=== PATIENT | male | born 1940 | race Caucasian/White ===

== ENCOUNTER 2020-04-04 15:37 | Emergency (ER) | payer OTHER ==
--- OUTSIDE RECORDS SUMMARY | 2020-04-04 15:40 | XMS REPORT | Continuity of Care Document ---
:1940 Author Organization [employer] Care Team Providers Name Role Phone [employer] Unavailable Un available Problems No Data Provided for This Section Medications No Data Provided for This Section Allergies, Adverse Reactions, Alerts No Known Medication Allergies Immunizations No Data Provided for This Section Results No Data Provided for This Section Pathology Reports No Data Provided for This Section Diagnostic Reports No Data Provided for This Section Consultation Notes No Data Provided for This Section Discharge Summaries No Data Provided for This Section History and Physicals No Data Provided for This Section Vital Signs No Data Provided for This Section Encounters Location Location Encounter Encounter Reason Attending ADM [place] Stat Source Details Type Number For Provider Date Date Visit Outpatient [id number] SO 05/20 Active [facility] Outside [id number] 07/01 07/03 Mis [facility] Medical /2018 [facility] [place] Records Procedures No Data Provided for This Section Assessment and Plan No Data Provided for This Section Plan of Care No Data Provided for This Section Social History Social History Date Source No data available for this 07/03/2018 [facility] [place] section Family History No Data Provided for This Section Advance Directives No Data Provided for This Section Functional Status No Data Provided for This Section
[2020-04-04 18:39] LABS: Absolute Lymphocytes (CBC) 0.6 K/uL (0.7-4.9); Basophils % 0.2 % (0-1.3); Hematocrit 42.6 % (39.6-49.0); Lymphocytes % 17.2 % (15.3-44.8); MPV 7.9 fL (7.6-11.3); RBC Red Blood Cell Count 4.85 M/uL (4.33-5.43)
[2020-04-04 18:40] LABS: Protime INR 1.03
[2020-04-04] MEDS ORDERED: NA CHLORIDE 0.9% 1,000 ML ONE (18:46)
[2020-04-04] MEDS ORDERED: CEFTRIAXONE/SWI 1gm 1 GM/10 ML SYR ONE (18:46)
[2020-04-04 18:53] LABS: ALT/SGPT 23 U/L (12-78); AST/SGOT 29 U/L (15-37); Albumin 3.7 g/dL (3.4-5.0); Alkaline Phosphatase 89 U/L (45-117); BUN Blood Urea Nitrogen 13 mg/dL (7-18); Bicarbonate 28 mmol/L (21-32); Bilirubin Direct 0.1 mg/dL (0-0.2); Bilirubin Total 0.6 mg/dL (0.2-1.0); Glucose Level 102 mg/dL (74-106); Lipase 146 U/L (73-393); NT PRO-BNP 111 pg/mL (<450); Potassium 4.1 mmol/L (3.5-5.1); Protein, Total 7.8 g/dL (6.4-8.2); Sodium Level 136 mmol/L (136-145); Troponin (Emerg Dept Use Only) < 0.02 ng/mL (0.0-0.045)
--- NOTE | 2020-04-04 19:16 | RAD REPORT ---
EXAM DESCRIPTION: Samy Single View04/04/2020 6:46 pm CLINICAL HISTORY: cough COMPARISON: none FINDINGS: The lungs appear clear of acute infiltrate. The heart is normal size IMPRESSION: No acute abnormalities displayed
[2020-04-04 19:51] LABS: SARS-COV-2 RT PCR POSITIVE (NEGATIVE)
[2020-04-04 19:54] LABS: Urine Blood 2+ (NEG); Urine Glucose NEGATIVE (NEG); Urine Protein 2+ (NEG)
--- NOTE | 2020-04-04 20:03 | EDPHYS ---
Physician Documentation [facility] Name: Rudi Nina Age: 79 yrs Sex: Male : 1940 Arrival Date: 04/04/2020 Time: 15:39 Bed External Waiting [facility] MD: Yung Marie B ED Physician Zach Neff HPI: 04/04 18:01 This 79 yrs old Male presents to ER via Ambulatory with complaints of General jb Weakness, Pain With Urination. 18:01 weak, cough , weakness, decreased po. The patient or guardian reports cough, described jb as mild. Onset: The symptoms/episode began/occurred 3 day(s) ago. Severity of symptoms: At their worst the symptoms were mild, in the emergency department the symptoms are unchanged. Modifying factors: The symptoms are alleviated by nothing, the symptoms are aggravated by nothing. Associated signs and symptoms: Pertinent positives: rhinorrhea. Severity of symptoms: At their worst the symptoms were mild moderate in the emergency department the symptoms are unchanged. The patient has not experienced similar symptoms in the past. Historical: - Allergies: 16:22 No Known Allergies; ss - Home Meds: 16:22 None [Active]; ss - PMHx: 16:22 None; ss - PSHx: 16:22 facial recon.; ss - Immunization history:: Adult Immunizations up to date. - Social history:: Smoking status: Patient denies any tobacco usage or history of. - Family history:: not pertinent. ROS: 18:01 Constitutional: Negative for fever, chills, and weight loss, Eyes: Negative for injury, jb pain, redness, and discharge, ENT: Negative for injury, pain, and discharge, Neck: Negative for injury, pain, and swelling, Cardiovascular: Negative for chest pain, palpitations, and edema, Abdomen/GI: Negative for abdominal pain, nausea, vomiting, diarrhea, and constipation, Back: Negative for injury and pain, : Negative for injury, bleeding, discharge, and swelling, MS/Extremity: Negative for injury and deformity, Skin: Negative for injury, rash, and discoloration, Neuro: Negative for headache, weakness, numbness, tingling, and seizure, Psych: Negative for depression, anxiety, suicide ideation, homicidal ideation, and hallucinations, Allergy/Immunology: Negative for hives, rash, and allergies, Endocrine: Negative for neck swelling, polydipsia, polyuria, polyphagia, and marked weight changes, Hematologic/Lymphatic: Negative for swollen nodes, abnormal bleeding, and unusual bruising. 18:01 Respiratory: Positive for cough, "sounds productive". Exam: 18:01 Constitutional: This is a well developed, well nourished patient who is awake, alert, jb and in no acute distress. Head/Face: Normocephalic, atraumatic. Eyes: Pupils equal round and reactive to light, extra-ocular motions intact. Lids and lashes normal. Conjunctiva and sclera are non-icteric and not injected. Cornea within normal limits. Periorbital areas with no swelling, redness, or edema. ENT: Nares patent. No nasal discharge, no septal abnormalities noted. Tympanic membranes are normal and external auditory canals are clear. Oropharynx with no redness, swelling, or masses, exudates, or evidence of obstruction, uvula midline. Mucous membranes moist. Neck: Trachea midline, no thyromegaly or masses palpated, and no cervical lymphadenopathy. Supple, full range of motion without nuchal rigidity, or vertebral point tenderness. No Meningismus. Chest/axilla: Normal chest wall appearance and motion. Nontender with no deformity. No lesions are appreciated. Cardiovascular: Regular rate and rhythm with a normal S1 and S2. No gallops, murmurs, or rubs. Normal PMI, no JVD. No pulse deficits. Respiratory: Lungs have equal breath sounds bilaterally, clear to auscultation and percussion. No rales, rhonchi or wheezes noted. No increased work of breathing, no retractions or nasal flaring. Abdomen/GI: Soft, non-tender, with normal bowel sounds. No distension or tympany. No guarding or rebound. No evidence of tenderness throughout. Back: No spinal tenderness. No costovertebral tenderness. Full range of motion. Male : Normal genitalia with no discharge or lesions. Skin: Warm, dry with normal turgor. Normal color with no rashes, no lesions, and no evidence of cellulitis. MS/ Extremity: Pulses equal, no cyanosis. Neurovascular intact. Full, normal range of motion. Neuro: Awake and alert, GCS 15, oriented to person, place, time, and situation. Cranial nerves II-XII grossly intact. Motor strength 5/5 in all extremities. Sensory grossly intact. Cerebellar exam normal. Normal gait. Psych: Awake, alert, with orientation to person, place and time. Behavior, mood, and affect are within normal limits. 18:01 Musculoskeletal/extremity: DVT Exam: No signs of deep vein thrombosis. no pain, no swelling, no tenderness, negative Homans' sign noted on exam, no appreciated bluish discoloration, no erythema, no increased warmth. 19:25 ECG was reviewed by the Attending Physician. [facility] Vital Signs: 16:18 BP 167 / 92; Pulse 103; Resp 16; Temp 98.4(TE); Pulse Ox 99% on R/A; Weight 80.74 kg; ss Height 5 ft. 7 in. (170.18 cm); Pain 0/10; 19:35 BP 171 / 88; Pulse 72; Resp 17; ll1 21:36 BP 168 / 88; Pulse 74; Resp 18; Pulse Ox 99% on R/A; ll1 16:18 Body Mass Index 27.88 (80.74 kg, 170.18 cm) MDM: 17:43 Patient medically screened. [facility] 18:05 Differential Diagnosis sepsis, flu, Upper Respiratory Infection Pharyngitis Pneumonia. [facility] Data reviewed: vital signs, nurses notes, lab test result(s), EKG, radiologic studies, plain films. Data interpreted: facility maintenance helper: rate is 103 beats/min, rhythm is regular, Pulse oximetry: on room air is 99 %. Test interpretation: by ED physician or midlevel provider: ECG, plain radiologic studies. Counseling: I had a detailed discussion with the patient and/or guardian regarding: the historical points, exam findings, and any diagnostic results supporting the discharge/admit diagnosis, lab results, radiology results. 04/04 18:00 Order name: Basic Metabolic Panel [facility] 04/04 18:00 Order name: CBC with Diff; Complete Time: 19:00 [facility] 04/04 18:00 Order name: LFT's [facility] 04/04 18:00 Order name: Magnesium [facility] 04/04 18:00 Order name: NT PRO-BNP [facility] 04/04 18:00 Order name: PT-INR; Complete Time: 18:53 [facility] 04/04 18:00 Order name: Troponin (emerg Dept Use Only) [facility] 04/04 18:00 Order name: Lipase [facility] 04/04 18:00 Order name: Urine Culture [facility] 04/04 18:01 Order name: Lactate; Complete Time: 19:00 [facility] 04/04 18:48 Order name: Urine Dipstick--Ancillary (enter results); Complete Time: 19:59 04/04 19:51 Order name: COVID-19/FLU A+B; Complete Time: 19:59 [facility] 04/04 18:00 Order name: XRAY Chest (1 view); Complete Time: 19:26 [facility] 04/04 18:00 Order name: EKG; Complete Time: 18:01 [facility] 04/04 18:00 Order name: Cardiac monitoring; Complete Time: 19:35 [facility] 04/04 18:00 Order name: EKG - Nurse/Tech; Complete Time: 19:35 [facility] 04/04 18:00 Order name: IV Saline Lock; Complete Time: 18:07 [facility] 04/04 20:36 Order name: CT Chest For PE Angio [facility] 04/04 21:02 Order name: PSA Screen [facility] 04/04 18:00 Order name: Labs collected and sent; Complete Time: 18:07 [facility] 04/04 18:00 Order name: O2 Per Protocol; Complete Time: 18:06 [facility] 04/04 18:00 Order name: O2 Sat Monitoring; Complete Time: 18:06 [facility] 04/04 18:00 Order name: Urine Dipstick-Ancillary (obtain specimen); Complete Time: 18:43 jb EC:25 Rate is 72 beats/min. Rhythm is regular. QRS [place] is Normal. [place] interval is normal. QRS jb interval is normal. QT interval is normal. No Q waves. T waves are Normal. No ST changes noted. Clinical impression: NSR w/ Non-specific ST/T Changes and No evidence of ischemia. Interpreted by me. Reviewed by me. Administered Medications: 18:43 Drug: NS 0.9% 1000 ml Route: IV; Rate: 1 bolus; Site: right antecubital; ll1 20:26 Follow up: Response: No adverse reaction; RASS: Alert and Calm (0); IV Status: ll1 Completed infusion; IV Intake: 1000ml 18:54 Drug: Rocephin 1 grams Route: IV; Rate: per protocol; Site: right antecubital; ll1 20:27 Follow up: Response: No adverse reaction; RASS: Alert and Calm (0); IV Status: ll1 Completed infusion; IV Intake: 10ml 20:25 Drug: Aspirin Chewable Tablet 324 mg Route: PO; ll1 20:27 Follow up: Response: No adverse reaction; RASS: Alert and Calm (0) ll1 20:25 Drug: Pepcid 20 mg Route: IVP; Site: right antecubital; 1 21:02 Follow up: Response: No adverse reaction; RASS: Alert and Calm (0) [facility] 20:25 Drug: Decadron - Dexamethasone 10 mg Route: IVP; Site: right antecubital; 1 21:02 Follow up: Response: No adverse reaction; RASS: Alert and Calm (0) [facility] 20:25 Drug: Zithromax 500 mg Route: IVPB; Infused Over: 1 hrs; Site: right antecubital; 1 21:01 Follow up: Response: No adverse reaction; RASS: Alert and Calm (0); IV Status: ll1 Completed infusion; IV Intake: 250ml 20:26 Not Given (not available): Ivermectin 12 mg PO once [facility] 21:21 Drug: Mucomyst - Acetylcysteine 600 mg Route: PO; 1 21:39 Follow up: Response: No adverse reaction [facility] Disposition: 04/04/20 20:02 Discharged to Home. Impression: Weakness, Malaise and fatigue, SARS-associated coronavirus as the cause of diseases classified elsewhere - covid 19. - Condition is Stable. - Discharge Instructions: Weakness, Fatigue, Weakness, [id number], Aspirin and Your Heart, COVID-19. - Prescriptions for dexamethasone 2 mg Oral tablet - take 1 tablet by ORAL route 3 times per day; 15 tablet. Pepcid 20 mg Oral Tablet - take 1 tablet by ORAL route every 12 hours for 15 days; 30 tablet. ivermectin 3 mg Oral tablet - take 4 tablet by ORAL route once daily x1 dose on days 1 and day 3.; 8 tablet. Zithromax 500 mg Oral Tablet - take 1 tablet by ORAL route once daily for 4 days; 4 tablet. Albuterol Sulfate 90 mcg/actuation Inhalation - inhale 2 puff by INHALATION route every 4-6 hours; 1 Inhaler. - Medication Reconciliation Form, Thank You Letter, Antibiotic Education, Prescription Opioid Use form. - Follow up: Yung Marie MD; When: 2 - 3 days; Reason: Recheck today's complaints, Continuance of care, Re-evaluation by your physician. Follow up: Otis Canales MD; When: 2 - 3 days; Reason: Recheck today's complaints, Re-evaluation by your physician. - Problem is new. - Symptoms have improved. Signatures: Dispatcher [employer] EDIN Andrea Roberts RN RN sg Anderson, Corey, MD MD cha Smirch, Shelby, RN RN ss Destinee Nash RN RN ll1 Corrections: (The following items were deleted from the chart) 19:01 18:01 Influenza Screen (A \\T\\ B)+BA.LAB.BRZ ordered. EDIN EDMS 21:02 20:40 PSA SCREEN+C.LAB.BRZ ordered. EDIN EDMS 22:42 20:02 04/04/2020 20:02 Discharged to Home. Impression: Weakness; Malaise and fatigue; sg SARS-associated coronavirus as the cause of diseases classified elsewhere - covid 19. Condition is Stable. Forms are Medication Reconciliation Form, Thank You Letter, Antibiotic Education, Prescription Opioid Use. Follow up: Yung Marie; When: 2 - 3 days; Reason: Recheck today's complaints, Continuance of care, Re-evaluation by your physician. Follow up: Otis Canales; When: 2 - 3 days; Reason: Recheck today's complaints, Re-evaluation by your physician. Problem is new. Symptoms have improved. jb
--- NOTE | 2020-04-04 20:03 | ER ---
Nurse's Notes [facility] Name: Rudi Nina Age: 79 yrs Sex: Male : 1940 Arrival Date: 04/04/2020 Time: 15:39 Bed External Waiting Private MD: Yung Marie B Diagnosis: Weakness;Malaise and fatigue;SARS-associated coronavirus as the cause of diseases classified elsewhere-covid 19 Presentation: 04/04 16:18 Chief complaint: Patient states: "I can hardly stand up. I'm weak." Pt reports symptoms ss began 5-6 days ago. Pt also c/o urinary urgency and mild burning with urination. Coronavirus screen: fatigue, Client presents with at least one sign or symptom that may indicate coronavirus-19. Standard/surgical mask placed on the client. Ebola Screen: Patient denies exposure to infectious person. Patient denies travel to an Ebola-affected area in the 21 days before illness onset. Initial Sepsis Screen: Does the patient meet any 2 criteria? No. Patient's initial sepsis screen is negative. Does the patient have a suspected source of infection? No. Patient's initial sepsis screen is negative. Risk Assessment: Do you want to hurt yourself or someone else? Patient reports no desire to harm self or others. Onset of symptoms was March 29, 2020. 16:18 Method Of Arrival: Ambulatory ss 16:18 Acuity: AURELIO 3 ss Historical: - Allergies: 16:22 No Known Allergies; ss - Home Meds: 16:22 None [Active]; ss - PMHx: 16:22 None; ss - PSHx: 16:22 facial recon.; ss - Immunization history:: Adult Immunizations up to date. - Social history:: Smoking status: Patient denies any tobacco usage or history of. - Family history:: not pertinent. Screenin:33 Abuse screen: Denies threats or abuse. Nutritional screening: No deficits noted. ll1 Tuberculosis screening: No symptoms or risk factors identified. Fall Risk IV access (20 points). Gait- Weak (10 pts.). Total Omalley Fall Scale indicates Low Risk Score (25-44 pts). Assessment: 18:10 General: Appears in no apparent distress. Behavior is calm, cooperative, appropriate ll1 for age. Pain: Denies pain. Neuro: Level of Consciousness is awake, alert, obeys commands, Oriented to person, place, time, situation, Appropriate for age Creative Developer are equal bilaterally Moves all extremities. Full function Gait is steady, Speech is normal, Facial symmetry appears normal, Reports weakness. Cardiovascular: No deficits noted. : Urine is clear, Reports burning with urination, urgency, urinary frequency. Musculoskeletal: Circulation, motion, and sensation intact. Capillary refill < 3 seconds, Reports weakness in generalized. 19:10 Reassessment: No changes from previously documented assessment. Patient and/or family ll1 updated on plan of care and expected duration. Pain level reassessed. 20:10 Reassessment: No changes from previously documented assessment. Patient and/or family ll1 updated on plan of care and expected duration. Pain level reassessed. 21:10 Reassessment: No changes from previously documented assessment. Patient and/or family ll1 updated on plan of care and expected duration. Pain level reassessed. Vital Signs: 16:18 BP 167 / 92; Pulse 103; Resp 16; Temp 98.4(TE); Pulse Ox 99% on R/A; Weight 80.74 kg; Height 5 ft. 7 in. (170.18 cm); Pain 0/10; 19:35 BP 171 / 88; Pulse 72; Resp 17; ll1 21:36 BP 168 / 88; Pulse 74; Resp 18; Pulse Ox 99% on R/A; ll1 16:18 Body Mass Index 27.88 (80.74 kg, 170.18 cm) ED Course: 15:39 Patient arrived in ED. ag5 15:40 Yung Marie MD is Private Physician. ag5 16:03 Zach Neff MD is Attending Physician. [facility] 16:21 Triage completed. ss 16:22 Arm band placed on right wrist. ss 17:38 Destinee Nash, ADOLFO is Primary Nurse. ll1 18:10 Patient has correct armband on for positive identification. Bed in low position. Call ll1 light in reach. Side rails up X 1. Pulse ox on. NIBP on. 18:30 Inserted saline lock: 22 gauge in right antecubital area, using aseptic technique. ll1 Blood collected. 18:49 XRAY Chest (1 view) In Process Unspecified. EDMS 20:01 Yung Marie MD is Referral Physician. jb 20:01 Otis Canales MD is Referral Physician. jb 20:30 IV discontinued, intact, bleeding controlled, No redness/swelling at site. Pressure ll1 dressing applied. 20:40 Inserted saline lock: 22 gauge in right antecubital area, using aseptic technique. ll1 21:27 CT Chest For PE Angio In Process Unspecified. EDMS 21:38 No provider procedures requiring assistance completed. ll1 21:53 Primary Nurse role handed off by Destinee Nash RN sg 21:53 Andrea Roberts RN is Primary Nurse. sg 21:59 IV discontinued, intact, bleeding controlled, No redness/swelling at site. Pressure ll1 dressing applied. Administered Medications: 18:43 Drug: NS 0.9% 1000 ml Route: IV; Rate: 1 bolus; Site: right antecubital; 1 20:26 Follow up: Response: No adverse reaction; RASS: Alert and Calm (0); IV Status: ll1 Completed infusion; IV Intake: 1000ml 18:54 Drug: Rocephin 1 grams Route: IV; Rate: per protocol; Site: right antecubital; 1 20:27 Follow up: Response: No adverse reaction; RASS: Alert and Calm (0); IV Status: ll1 Completed infusion; IV Intake: 10ml 20:25 Drug: Aspirin Chewable Tablet 324 mg Route: PO; ll1 20:27 Follow up: Response: No adverse reaction; RASS: Alert and Calm (0) ll1 20:25 Drug: Pepcid 20 mg Route: IVP; Site: right antecubital; ll1 21:02 Follow up: Response: No adverse reaction; RASS: Alert and Calm (0) ll1 20:25 Drug: Decadron - Dexamethasone 10 mg Route: IVP; Site: right antecubital; ll1 21:02 Follow up: Response: No adverse reaction; RASS: Alert and Calm (0) ll1 20:25 Drug: Zithromax 500 mg Route: IVPB; Infused Over: 1 hrs; Site: right antecubital; ll1 21:01 Follow up: Response: No adverse reaction; RASS: Alert and Calm (0); IV Status: ll1 Completed infusion; IV Intake: 250ml 20:26 Not Given (not available): Ivermectin 12 mg PO once ll1 21:21 Drug: Mucomyst - Acetylcysteine 600 mg Route: PO; ll1 21:39 Follow up: Response: No adverse reaction ll1 Intake: 20:26 IV: 1000ml; Total: 1000ml. ll1 20:27 IV: 10ml; Total: 1010ml. ll1 21:01 IV: 250ml; Total: 1260ml. ll1 Outcome: 20:02 Discharge ordered by MD. muhammad 22:42 Patient left the ED. sg Signatures: Dispatcher [employer] EDAndrea Baptiste RN RN Zach Hall MD MD cha Smirch, Shelby, RN RN Uday Moon ag5 Destinee Nash RN RN 1
[2020-04-04] MEDS ORDERED: dexAMETHasone 10 MG/ML VIAL ONE (20:27)
[2020-04-04] MEDS ORDERED: NA CHLORIDE 0.9% 250 ML ONE (20:27)
[2020-04-04] MEDS ORDERED: AZITHROMYCIN 500 MG INJ IVPB ONE (20:27)
[2020-04-04] MEDS ORDERED: ASPIRIN 81 MG CHEWABLE TABLET ONE (20:27)
[2020-04-04] MEDS ORDERED: FAMOTIDINE 20 MG/2 ML VIAL IV ONE (20:28)
[2020-04-04] MEDS ORDERED: ACETYLCYST 6,000 MG/30 ML VIAL ONE (21:32)
[2020-04-04 22:50] VITALS: TEMP 98.4; O2SAT 99
[2020-04-04 22:52] VITALS: BP 168/88
--- NOTE | 2020-04-05 06:28 | EKG ---
Test Date: 2020-04-04 Test Time: 19:21:45 Project Product Manager: NICA MEASUREMENT RESULTS: Intervals: Rate: 72 AK: 202 QRSD: 98 QT: 412 QTc: 451 [place]: P: 61 AK: 202 QRS: -31 T: 11 INTERPRETIVE STATEMENTS: Normal sinus rhythm Left axis deviation Abnormal ECG No previous ECG available for comparison Electronically Signed On 04-05-20 06:27:03 FULLER BRUSH WORKER by Venkat Diggs
--- NOTE | 2020-04-05 09:18 | RAD REPORT ---
EXAM DESCRIPTION: CT - Chest For Pe Angio - 04/05/2020 6:27 am CLINICAL HISTORY: PE, weakness COMPARISON: None Available TECHNIQUE: Multiple helical axial tomographic images were obtained of the chest following administra tion of intravenous contrast per angiographic protocol. Coronal and sagittal reformatted images were obtained. This exam was performed according to our departmental dose-optimization program, which includes autom ated exposure control, adjustment of the mA and/or kV according to patient size and/or use of iterati ve reconstruction technique. FINDINGS: Thyroid gland: unremarkable. Axilla: unremarkable. Pulmonary arteries: Pulmonary arteries appear patent. No evidence of pulmonary embolism. Aorta: Mild aortic atherosclerosis is present. No evidence of aortic dissection or aneurysm. Mediastinum: There is a moderate size hiatal hernia. No adenopathy. Heart: Heart is mildly enlarged. Coronary artery calcifications are present. Lungs/airways: There are a few small groundglass opacities in both lungs. Airways are patent. Pleural spaces: No significant pleural effusion. No pneumothorax. Osseous: Unremarkable. Soft tissues: Unremarkable. Visualized abdomen: A few calcified splenic granulomas are present. IMPRESSION: 1. No evidence of pulmonary embolism. 2. Few scattered groundglass opacities in both lungs suggestive of an infectious or inflammatory proc ess. Imaging features can be seen with viral pneumonia, though are nonspecific and can occur with a v ariety of infectious and noninfectious processes. PneInd Reference: https://pubs.rsna.org/doi/full/10.1148/ryct.2975435660 3. Hiatal hernia. Electronically signed by: Lupillo Ny MD 04/04/2020 9:59 PM BALE BREAKER OPERATOR Due to temporary technical issues with the PACS/Fluency reporting system, reports are being signed by the in house radiologists without review as a courtesy to insure prompt reporting. The interpreting radiologist is fully responsible for the content of the report.
== END 2020-04-04 22:42 | disposition home or self-care (01) ==
LOC: ER 15:37
DX: U07.1 COVID-19 (principal); R53.81 Other malaise; R53.83 Other fatigue
CPT/HCPCS: 87088; 85025; 87086; 80048; 36415; 83735; 85610; 80076; 83605; 81003; 84484; 83690; 83880; 0240U; 71275; 71045; G0103; Q9967; J0456; J1100; J0696; J7050; J7030; 93005; 96365; 96375; 99284